=== PATIENT | female | born 1990 | race African-American/Black ===

== ENCOUNTER 2018-12-31 10:41 | Emergency (ER) | payer MEDICAID, OTHER ==
[~2018-12-31] VITALS: Ht 167.6 cm; Wt 95.0 kg
[2018-12-31 12:30] LABS: COLOR URINE YELLOW (YELLOW); KETONES URINE NEGATIVE (NEGATIVE); LEUKOCYTE ESTERASE URINE NEGATIVE (NEGATIVE); NITRITE URINE NEGATIVE (NEGATIVE); OCCULT BLOOD URINE 2+ (NEGATIVE); PROTEIN URINE NEGATIVE (NEGATIVE); UROBILINOGEN URINE 0.2 E.U./dL (0.2-1.0)
[2018-12-31 12:31] LABS: CLARITY URINE SL HAZY (CLEAR)
[2018-12-31 14:14] VITALS: BP 115/81
== END 2018-12-31 14:17 | disposition home or self-care (01) ==
LOC: ER 10:41
DX: R10.30 Lower abdominal pain, unspecified (principal); R03.0 Elevated blood-pressure reading, without diagnosis of hypertension
CPT/HCPCS: 81003; 81025; 87070; 87077; 99283